=== PATIENT | female | born 1960 | race African-American/Black ===

== ENCOUNTER 2016-12-01 11:39 | Outpatient (CLI) | payer MEDICARE ==
[2016-12-01 12:33] LABS: Cardiac Risk 5.8 (Less than 4.5)
== END 2016-12-01 11:40 | disposition home or self-care (01) ==
LOC: MADLABBHPM 11:39
PROVIDERS: ATTEND Family Medicine
DX: E78.5 Hyperlipidemia, unspecified (principal)
CPT/HCPCS: 36415; 80061

== ENCOUNTER 2018-10-24 16:45 | Outpatient (CLI) | payer MEDICARE, OTHER ==
--- NOTE | 2018-10-24 17:51 | RAD ---
PA AND LATERAL CHEST: Date: 10/24/18 HISTORY: Cough and congestion for 1 month. COMPARISON: 07/20/16. FINDINGS: The cardiac silhouette and pulmonary vasculature are within normal limits. Linear densities seen in t he left mid lung zone which may be related to minimal scarring or atelectasis. The lungs are otherwis e clear. Degenerative changes are again seen in the spine. IMPRESSION: No acute cardiopulmonary process. POS: [facility]
== END 2018-10-24 16:46 | disposition home or self-care (01) ==
LOC: MADRAD 16:45
PROVIDERS: ATTEND Family Medicine
DX: J20.9 Acute bronchitis, unspecified (principal)
CPT/HCPCS: 71046

== ENCOUNTER 2018-11-03 16:19 | Outpatient (CLI) | payer MEDICARE, OTHER ==
--- NOTE | 2018-11-03 16:55 | RAD ---
CHEST 2 VIEWS: Date: 11/03/18 HISTORY: Cough. COMPARISON: Radiograph dated 10/24/18. FINDINGS: Lungs are clear. No pneumothorax or effusion. Cardiac silhouette and mediastinal contour within luba l limits. No acute osseous abnormality. IMPRESSION: Similar exam. No acute intrathoracic abnormality. POS: [facility]
== END 2018-11-03 16:20 | disposition home or self-care (01) ==
LOC: MADRAD 16:19
PROVIDERS: ATTEND Family Medicine
DX: R05 Cough (principal)
CPT/HCPCS: 71046

== ENCOUNTER 2019-09-07 16:01 | Outpatient (CLI) | payer MEDICARE ==
--- NOTE | 2019-09-07 20:15 | CT ---
CT ABDOMEN AND PELVIS WITH IV CONTRAST: 09/07/19 HISTORY: Suprapubic abdominal pain for one week with associated nausea. Inguinal mass. COMPARISON: None. FINDINGS: Lung bases are clear. The liver, spleen, pancreas, bilateral adrenal glands, kidneys, and urinary brendon dder demonstrate a normal CT appearance. Vascular calcifications are seen in the abdominal aorta and involving the iliac arteries. The uterus is no visualized and likely surgically absent. Opacified loops of small bowel are normal in caliber. There is a small amount of retained fecal mater ial seen in the colon. The appendix is visualized and filled with gas and slightly prominent in size, but there is no periappendiceal inflammatory changes seen. No free fluid, fluid collection, or lymphadenopathy is seen in the abdomen or pelvis. No mass or abnormally enlarged lymph node is seen in either inguinal region to correspond to the prov ided history of an inguinal mass. Tiny fat containing umbilical hernia is present. No free fluid, fluid collection, or lymphadenopathy is seen in the abdomen or pelvis. Degenerative changes are seen in the spine. IMPRESSION: 1. No acute findings are seen in the abdomen or pelvis. 2. Hysterectomy. 3. No evidence of an inguinal mass. POS: [facility]
== END 2019-09-07 16:02 | disposition home or self-care (01) ==
LOC: MADCT 16:01
PROVIDERS: ATTEND Family Medicine
DX: R10.2 Pelvic and perineal pain (principal); R19.09 Other intra-abdominal and pelvic swelling, mass and lump; Z90.710 Acquired absence of both cervix and uterus
CPT/HCPCS: 74177

== ENCOUNTER 2020-01-01 09:40 | Outpatient (CLI) | payer MEDICARE | END 2020-01-01 09:41 | disposition home or self-care (01) | LOC: MADEKG 09:40 | PROVIDERS: ATTEND Family Medicine | DX: R00.2 Palpitations (principal) | CPT/HCPCS: 93005; 93010 ==

== ENCOUNTER 2020-06-25 16:59 | Outpatient (CLI) | payer MEDICARE ==
--- NOTE | 2020-06-25 17:35 | RAD ---
RIGHT ANKLE: 06/25/20 Three views. HISTORY: Swelling with pain. There is swelling at the ankle both medially and laterally. No fracture. No acute osseous abnormality . Small spur from the plantar calcaneus is noted. Mild degenerative change in the intertarsal joints noted. IMPRESSION: No acute osseous abnormality. POS: [facility]
== END 2020-06-25 17:00 | disposition home or self-care (01) ==
LOC: MADRAD 16:59
PROVIDERS: ATTEND Family Medicine
DX: M25.471 Effusion, right ankle (principal); M25.571 Pain in right ankle and joints of right foot

== ENCOUNTER 2022-03-02 11:23 | Emergency (ER) | payer MEDICARE, MEDICAID | END 2022-03-02 13:01 | disposition home or self-care (01) | LOC: MADERS 11:23 | DX: R11.0 Nausea (principal); R42 Dizziness and giddiness; E78.00 Pure hypercholesterolemia, unspecified; M79.7 Fibromyalgia; E66.9 Obesity, unspecified; E61.1 Iron deficiency; Z20.822 Contact with and (suspected) exposure to COVID-19; Z68.45 Body mass index [BMI] 70 or greater, adult; Z86.718 Personal history of other venous thrombosis and embolism; Z79.899 Other long term (current) drug therapy | CPT/HCPCS: U0003; U0005; 99283 ==

== ENCOUNTER 2022-05-20 23:01 | Emergency (ER) | payer OTHER, MEDICAID ==
[2022-05-20 23:55] LABS: #Basophils 0.1 thou/uL (0.0-0.2); #Eosinphils 0.1 thou/uL (0.0-0.7); #Lymphocytes 1.7 thou/uL (1.20-3.40); #Monocytes 0.4 thou/uL (0.11-0.59); #Neutrophils 2.2 thou/uL (1.40-6.50); %Basophils 2.9 % (0.0-1.0); %Eosinophils 1.4 % (0.0-10.0); %Monocytes 9.2 % (0.0-10.0); %Neutrophils 48.5 % (42.0-75.0); Hemoglobin 10.6 g/dL (12.0-16.0); Mean Corpuscular HGB CONC 31.7 g/dL (32.0-36.0); Mean Corpuscular Hemoglobin 28.9 pg (27.0-31.0); Mean Corpuscular Volume 91.2 fL (78.0-98.0); Mean Platelet Volume 9.8 fL (7.4-10.4); Platelet Count 224 thou/uL (130-400); RBC Distribution Width 13.3 % (11.5-14.5); Red Blood Cell (RBC) Count 3.68 mill/uL (4.20-5.40); White Blood Cell (WBC) Count 4.5 thou/uL (4.8-10.8)
[2022-05-21 00:05] LABS: Chloride 105 mmol/L (98-107); Potassium 4.3 mmol/L (3.5-5.1); Sodium 141 mmol/L (136-145)
[2022-05-21 00:22] LABS: ALT (SGPT) 10 U/L (8-55); AST (SGOT) 12 U/L (5-34); Albumin 3.9 g/dL (3.4-4.8); Alkaline Phosphatase 83 U/L (40-110); BUN (Urea Nitrogen) 9 mg/dL (9.8-20.1); Bilirubin, Total 0.4 mg/dL (0.2-1.2); Calc. Creatinine Clearance 0 mL/min (70-130); Calcium 9.4 mg/dL (7.8-10.44); Carbon Dioxide 27 mmol/L (23-31); Estimated GFR 89; Globulin 2.9 g/dL (2.4-3.5); Glucose 104 mg/dL (80-115); Magnesium 2.3 mg/dL (1.6-2.6); Protein, Total 6.8 g/dL (5.8-8.1)
[2022-05-21 00:44] LABS: Anion Gap 13 mmol/L (10-20)
== END 2022-05-21 01:40 | disposition home or self-care (01) ==
LOC: MADERS 23:01
DX: I49.1 Atrial premature depolarization (principal); D64.9 Anemia, unspecified; R09.81 Nasal congestion; E78.5 Hyperlipidemia, unspecified; E78.00 Pure hypercholesterolemia, unspecified; Z86.718 Personal history of other venous thrombosis and embolism; Z79.01 Long term (current) use of anticoagulants; Z79.899 Other long term (current) drug therapy
CPT/HCPCS: 71045; 80053; 83735; 84443; 84484; 85025; 87081; 87430; 93005; 94760

== ENCOUNTER 2022-07-06 22:18 | Emergency (ER) | payer MEDICAID, MEDICARE, OTHER ==
[2022-07-06] MEDS ORDERED: Ondansetron ODT 4 MG TAB ONE (22:46)
[2022-07-06] MEDS ORDERED: Ibuprofen 800 MG TAB ONE (23:41)
[2022-07-06] MEDS ORDERED: Loperamide HCl 2 MG CAP ONE (23:41)
== END 2022-07-07 00:15 | disposition home or self-care (01) ==
LOC: MADERS 22:18
DX: R11.2 Nausea with vomiting, unspecified (principal); R19.7 Diarrhea, unspecified; E78.00 Pure hypercholesterolemia, unspecified; E66.9 Obesity, unspecified; Z79.899 Other long term (current) drug therapy
CPT/HCPCS: 99283; Q0162